=== PATIENT | male | born 1995 | race Caucasian/White ===

== ENCOUNTER 2018-05-10 13:01 | Emergency (ER) | payer MEDICAID, OTHER ==
[~2018-05-10] VITALS: Ht 177.8 cm; Wt 70.1 kg
[2018-05-10 13:03] VITALS: BP 123/74
[2018-05-10] MEDS ORDERED: HYDROcodone/APAP 5/325 TABLET ONE (13:50)
[2018-05-10] MEDS ORDERED: DIAZEPAM 5 MG TABLET ONE (13:50)
[2018-05-10] MEDS ORDERED: KETOROLAC 30 MG/1 ML ONE (13:50)
[2018-05-10] MEDS ORDERED: KETOROLAC 30 MG/1 ML IM ONE (14:00)
[2018-05-10] MEDS ORDERED: DIAZEPAM 5 MG TABLET PO ONE (14:00)
[2018-05-10] MEDS ORDERED: HYDROcodone/APAP 5/325 TABLET PO ONE (14:00)
== END 2018-05-10 14:27 | disposition home or self-care (01) ==
LOC: ED 14:21
DX: G89.29 Other chronic pain (principal); M54.5 Low back pain
CPT/HCPCS: 96372; 99283; J1885

== ENCOUNTER 2020-09-30 08:48 | Emergency (ER) | payer SELFPAY ==
[~2020-09-30] VITALS: Ht 175.3 cm; Wt 65.1 kg
[2020-09-30 08:53] VITALS: BP 139/99
== END 2020-09-30 09:22 | disposition home or self-care (01) ==
LOC: ED 09:15
DX: K02.9 Dental caries, unspecified (principal); K08.89 Other specified disorders of teeth and supporting structures
CPT/HCPCS: 99283